=== PATIENT | male | born 1970 ===

== ENCOUNTER 2017-01-04 06:22 | Day surgery (SDC) | payer OTHER ==
[2016-06-30 01:17] VITALS: BMI 29.7
[2017-01-04 06:56] LABS: ADD MANUAL DIFF? NO
[2017-01-04 07:06] LABS: BASO # 0.13 K/mm3 (0.0-2.0); BASO % 1.5 % (0.0-3.0); EOS # 0.5 (0.0-0.7); EOS % 5.7 % (1.5-5.0); GRAN # 3.69 (1.4-6.5); GRAN % 43.1 % (50.0-68.0); HEMATOCRIT 42.1 % (42.0-52.0); LYMPH # 3.3 (1.2-3.4); LYMPH % 38.2 % (22.0-35.0); MEAN CELL VOLUME 82.1 fL (80.0-105.0); MEAN CORPUSCULAR HEMOGLOBIN 30.6 pg (25.0-35.0); MEAN CORPUSCULAR HGB CONC 37.3 g/dl (31.0-37.0); MEAN PLATELET VOLUME 10.3 fl (7.0-11.0); MONO % 11.5 % (1.0-6.0); PLATELET COUNT 182 10^3/uL (120.0-450.0); RED CELL DISTRIBUTION WIDTH 12.9 % (11.5-14.5); WHITE BLOOD COUNT 8.6 10^3/ul (4.5-11.0)
[2017-01-04 07:16] LABS: BLOOD UREA NITROGEN 14 mg/dL (7-21); CARBON DIOXIDE 25 mmol/L (21-33); CHLORIDE 108 mmol/L (95-110); GFR AFRICAN-AMERICAN > 60; GLUCOSE,RANDOM 94 mg/dL (70-110); POTASSIUM 3.9 mmol/L (3.6-5.0); SODIUM 140 mmol/L (132-148)
[2017-01-04 07:33] LABS: PARTIAL THROMBOPLASTIN TIME 27.4 Seconds (23.7-30.8)
[2017-01-04] MEDS ORDERED: Lidocaine 2% Inj (20ml) ONE (09:11)
[2017-01-04] MEDS ORDERED: Midazolam 2 MG/2 ML VIAL ONE ×2 (09:12→09:32)
[2017-01-04] MEDS ORDERED: Sodium Chloride 0.9% 1,000 ML IV SCH (10:00)
[2017-01-04 10:21] VITALS: RESP 20
--- NOTE | 2017-01-04 11:35 | CARDCATH ---
PROCEDURE DATE: 01/04/2017 HISTORY OF PRESENT ILLNESS: The patient is a 46-year-old male who presents with palpitations, chest pain. His cardiac risk factors are notable for borderline increased cholesterol. Because of an abnormal stress test, a cardiac catheterization was recommended. PROCEDURE: Left heart catheterization with coronary angiography and left ventriculogram. The right femoral artery was cannulated with a 6-Spanish sheath. There were no complications. The findings on catheterization revealed a left ventricle that contracted normally. Estimated ejecti on fraction is 60%. His coronary anatomy revealed a right dominant circulation. The RCA was free of significant disease. The left main artery was unremarkable. The LAD and diagonal vessels revealed mild intimal irregularities without critical lesions. The circumflex artery and obtuse marginal branches were free of significant disease. Angio-Seal was used to close the femoral artery site. The patient tolerated the procedure well. SUMMARY: The procedure revealed: 1. Unremarkable coronary arteries. 2. Normal left ventricular function. Given these findings, the patient's treatment should be a cardiac risk reduction program. We will co ntinue low-dose beta blockers. Dakota Galloway MD cc: [id number] TT: 01/04/2017 11:34:32 en
--- NOTE | 2017-01-04 12:41 | CARD ---
APPROVED REPORT EKG Measurement Heart [id number] CO 164P33 [id number] <Conclusion> Normal sinus rhythm Normal ECG
[2017-01-04 14:43] VITALS: PULSE 67
[2017-01-04 15:13] VITALS: BP 112/60; TEMP 98; O2SAT 96
== END 2017-01-04 15:15 | disposition home or self-care (01) ==
LOC: CATH 06:22
PROVIDERS: ATTEND Internal Medicine Cardiovascular Disease
DX: R07.9 Chest pain, unspecified (principal); R00.2 Palpitations; E78.00 Pure hypercholesterolemia, unspecified
CPT/HCPCS: 36415; 80048; 85025; 85610; 85730; 86850; 86900; 93005; 93458; 99152; C1760; C1769; C2629; J1644; J2250; J3010; J7040 ×2; Q9967

== ENCOUNTER 2018-09-29 06:13 | Outpatient (CLI) | payer OTHER | END 2018-09-29 06:14 | disposition home or self-care (01) | LOC: CARDIO 06:13 ==

== ENCOUNTER 2018-09-29 11:29 | Emergency (ER) | payer OTHER ==
[2018-09-29 11:31] VITALS: BMI 32.8
[2018-09-29 11:43] VITALS: RESP 18; TEMP 97.2
--- NOTE | 2018-09-29 12:01 | ED PDOC ---
Arrival/HPI - General Chief Complaint: Chest Pain Time Seen by Provider: 09/29/18 11:33 Historian: Patient - History of Present Illness Narrative History of Present Illness (Text): 09/29/18 11:58 A 48 year old male, whose past medical history includes tachycardia and hypertension, presents to the emergency department complaining of chest discomfort and tightness since earlier today. Patient reports he was at the doctor's office waiting to do a stress test when he suddenly experienced sharp chest pains prompting Dr. Galloway to send him to the ER. Patient notes pain is non- radiating and is claiming he feels better. Patient denies any shortness of breath, diaphoresis, or any other complaints. PMD: Dr. Holguin Time/Duration: 1-3 hours (earlier today) Symptom Onset: Sudden Symptom Course: Improving Activities at Onset: Light Context: Other (Doctor's office) Past Medical History - Provider Review Nursing Documentation Reviewed: Yes - Reproductive Currently Lactating: No - Cardiac Hx Cardiac Disorders: Yes Hx Cardiac Arrhythmia: Yes (tachycardia) Hx Pacemaker: No - Pulmonary Hx Respiratory Disorders: No - Neurological Hx Paralysis: No - HEENT Hx HEENT Disorder: No - Renal Hx Renal Disorder: No - Endocrine/Metabolic Hx Endocrine Disorders: No - Hematological/Oncological Hx Blood Transfusions: No - Integumentary Hx Dermatological Disorder: No - Musculoskeletal/Rheumatological Hx Musculoskeletal Disorders: No - Gastrointestinal Hx Gastrointestinal Disorders: No - Genitourinary/Gynecological Hx Genitourinary Disorders: No - Psychiatric Hx Emotional Abuse: No Hx Physical Abuse: No Hx Substance Use: No - Surgical History Other/Comment: cardioverted x2 - Anesthesia Hx Anesthesia Reactions: No Hx Malignant Hyperthermia: No - Suicidal Assessment Feels Threatened In Home Enviroment: No Family/Social History - Physician Review Nursing Documentation Reviewed: Yes Family/Social History: No Known Family HX Smoking Status: Former Smoker Hx Alcohol Use: No Hx Substance Use: No Hx Substance Use Treatment: No Allergies/Home Meds Allergies/Adverse Reactions: Allergies No Known Allergies Allergy (Verified 06/30/16 01:15) Home Medications: Home Meds Medication Instructions Recorded Confirmed Metoprolol Succinate XL [Toprol XL] 50 mg PO DAILY 06/30/16 09/29/18 Review of Systems - Physician Review All systems were reviewed & negative as marked: Yes - Review of Systems Respiratory: absent: SOB Cardiovascular: Chest Pain Endocrine: absent: Diaphoresis Physical Exam - Physical Exam Narrative Physical Exam (Text): 09/29/18 11:59 Gen: VS reviewed, alert, well developed, well nourished, nontoxic, mild distress. ENT: normal pharynx. Eye: EOMI, PERRL. Neck: no JVD, supple, no adenopathy. CV: regular rate, regular rhythm, no rubs, no murmur, no gallops, S1, S2, pulses equal and strong. Pulm: no distress, clear to auscultation, no wheeze, no rhonchi, breath sounds equal, no rales. Abd: soft, nontender, no guarding, no rebound, no rigidity, normal bowel sounds. Ext: no edema. Skin: good color, no rash, no cyanosis. Psych: responds appropriately to questions, normal affect. Neuro: oriented x 3, CN2-12 intact grossly, motor intact, sensation intact. Vital Signs Reviewed: Yes Vital Signs Temp Pulse Resp BP Pulse Ox 09/29/18 11:37 97.2 F L 54 L 18 113/74 96 Temperature: Hypothermic Blood Pressure: Normal Pulse: Bradycardic Respiratory Rate: Normal Appearance: Positive for: Well-Appearing, Non-Toxic Pain Distress: None Mental Status: Positive for: Alert and Oriented X 3 Medical Decision Making ED Course and Treatment: 09/29/18 12:00 Impression: 48 year old male presenting to the emergency room complaining of chest discomfort and tightness. Plan: -- EKG -- Labs -- Chest X-ray -- Reassess and disposition Prior Visits: Notes and results from previous visits were reviewed. Progress Notes: - RAD Interpretation Narrative RAD Interpretations (Text): 09/29/18 13:27 Procedure: Chest X-ray Dictator: Chris Fortune MD Impression: No active disease. Radiology Orders: 09/29/18 12:00 CHEST PORTABLE [RAD] Stat Care Administrative Tech: Radiologist - EKG Interpretation EKG Interpretation (Text): 09/29/18 12:00 11:45 sinus olena at 52 bpm, nml qrs, nml axis, no acute sttw abn Interpreted by ED Physician: Yes - Scribe Statement The provider has reviewed the documentation as recorded by the Scribjones Butterfield All medical record entries made by the Scribe were at my direction and personally dictated by me. I have reviewed the chart and agree that the record accurately reflects my personal performance of the history, physical exam, medical decision making, and the department course for this patient. I have also personally directed, reviewed, and agree with the discharge instructions and disposition. Disposition/Present on Arrival - Present on Arrival Any Indicators Present on Arrival: No History of DVT/PE: No History of Uncontrolled Diabetes: No Urinary Catheter: No History of Decub. Ulcer: No History Surgical Site Infection Following: None - Disposition Have Diagnosis and Disposition been Completed?: Yes Diagnosis: Chest pain Disposition Time: 16:02 Patient Problems: Current Active Problems Problem Status Onset Chest pain Acute Condition: STABLE Discharge Instructions (ExitCare): Chest Pain (ED) Additional Instructions: return for any new or worsening symptoms. follow up with your employment interviewer as soon as possible. Referrals: Remington Fitzgerald MD [Primary Care Provider] - Follow up with primary Forms: [employer] (M[place]itanian), WORK NOTE
[2018-09-29 12:33] LABS: BASO # 0.05 K/mm3 (0.0-2.0); BASO % 0.6 % (0.0-3.0); EOS # 0.3 (0.0-0.7); EOS % 3.3 % (1.5-5.0); LYMPH # 3.5 (1.2-3.4); LYMPH % 40.4 % (22.0-35.0); MEAN CELL VOLUME 83.9 fl (80.0-105.0); MEAN CORPUSCULAR HEMOGLOBIN 30.4 pg (25.0-35.0); MEAN CORPUSCULAR HGB CONC 36.2 g/dl (31.0-37.0); MEAN PLATELET VOLUME 9.7 fl (7.0-11.0); MONO # 0.8 (0.1-0.6); MONO % 8.6 % (1.0-6.0); RBC 5.27 10^6/uL (3.5-6.1); RED CELL DISTRIBUTION WIDTH 13.2 % (11.5-14.5); WHITE BLOOD COUNT 8.7 10^3/uL (4.5-11.0)
--- NOTE | 2018-09-29 12:38 | RAD ---
Date of service: 09/29/2018 HISTORY: chest pain COMPARISON: Comparison is made with 06/30/2016 FINDINGS: LUNGS: No evidence of new infiltrate or consolidation in the lungs. PLEURA: No significant pleural effusion identified, no pneumothorax apparent. CARDIOVASCULAR: No aortic atherosclerotic calcification present. Normal cardiac size. No pulmonary vascular congestion. OSSEOUS STRUCTURES: No significant abnormalities. VISUALIZED UPPER ABDOMEN: Normal. OTHER FINDINGS: None. IMPRESSION: No active disease.
[2018-09-29 12:40] LABS: ALB/GLOB RATIO 1.3 (1.1-1.8); ALBUMIN 4.4 g/dL (3.0-4.8); ALT/SGPT 29 U/L (7-56); AST/SGOT 37 U/L (17-59); BLOOD UREA NITROGEN 15 mg/dL (7-21); CALCIUM 9.3 mg/dL (8.4-10.5); GFR NON-AFRICAN AMERICAN > 60; HDL CHOLESTEROL 32 mg/dL (29-60)
[2018-09-29 12:41] LABS: INR 1.11; PROTHROMBIN TIME 12.5 SECONDS (9.4-12.5)
[2018-09-29 12:51] LABS: LDL CHOLESTEROL 75 mg/dL (0-129)
[2018-09-29 12:54] LABS: TROPONIN I < 0.01 ng/mL
--- NOTE | 2018-09-29 13:56 | CARD ---
APPROVED REPORT Date of service: 09/29/2018 EKG Measurement Heart [id number] [place] 154P3 [id number] <Conclusion> Sinus bradycardia Otherwise normal ECG
[2018-09-29 16:21] VITALS: BP 115/78; PULSE 58; O2SAT 98
== END 2018-09-29 16:21 | disposition home or self-care (01) ==
LOC: ED 11:29
DX: R07.89 Other chest pain (principal); Z87.891 Personal history of nicotine dependence; I10 Essential (primary) hypertension

== ENCOUNTER 2018-10-24 06:34 | Day surgery (SDC) | payer OTHER ==
[2018-10-20 11:03] VITALS: BMI 29.7
[2018-10-24 07:05] VITALS: RESP 18
[2018-10-24 07:16] LABS: BASO # 0.09 K/mm3 (0.0-2.0); EOS # 0.4 (0.0-0.7); EOS % 4.2 % (1.5-5.0); HEMOGLOBIN 15.9 g/dL (14.0-18.0); LYMPH # 3.3 (1.2-3.4); LYMPH % 37.1 % (22.0-35.0); MEAN CELL VOLUME 84.6 fl (80.0-105.0); MEAN CORPUSCULAR HEMOGLOBIN 30.5 pg (25.0-35.0); MEAN CORPUSCULAR HGB CONC 36.1 g/dl (31.0-37.0); MEAN PLATELET VOLUME 10.2 fl (7.0-11.0); RBC 5.21 10^6/uL (3.5-6.1); RED CELL DISTRIBUTION WIDTH 12.9 % (11.5-14.5); WHITE BLOOD COUNT 8.9 10^3/uL (4.5-11.0)
[2018-10-24 07:26] LABS: INR 1.05; PARTIAL THROMBOPLASTIN TIME 34.3 Seconds (26.9-38.3); PROTHROMBIN TIME 11.9 SECONDS (9.4-12.5)
[2018-10-24 07:28] LABS: BLOOD UREA NITROGEN 16 mg/dL (7-21); CALCIUM 9.3 mg/dL (8.4-10.5); GFR NON-AFRICAN AMERICAN > 60
[2018-10-24] MEDS ORDERED: Iodixanol 320 MG/ML 100 ML BOTTLE IV ONE (09:34)
[2018-10-24] MEDS ORDERED: Iohexol 350mgl/ml 50 ML ONE (09:34)
[2018-10-24] MEDS ORDERED: Lidocaine PF 2% (5 ml) Inj (For Cardiac Arrhy) ONE ×2 (09:34→09:37)
[2018-10-24] MEDS ORDERED: Iodixanol 320 MG/ML 200 ML BOTTLE IV ONE (09:34)
[2018-10-24] MEDS ORDERED: Midazolam 2 MG/2 ML VIAL ONE ×2 (10:15→10:17)
[2018-10-24] MEDS ORDERED: Sodium Chloride 0.9% 1,000 ML IV SCH (10:45)
[2018-10-24 11:02] VITALS: TEMP 98
[2018-10-24 14:05] VITALS: O2SAT 96
--- NOTE | 2018-10-24 14:52 | CARDCATH ---
PROCEDURE DATE: 10/24/2018 HISTORY The patient is a 48-year-old male with a history of hypertension as well as being overweight who presents with atypical chest pain. A stress test revealed new changes in the inferior wall. Because of this, cardiac catheterization was recommended. PROCEDURE: Left heart catheterization with coronary arteriography and left ventriculogram. The right femoral artery was cannulated with 6-Greek sheath. There were no complications. I performed moderate sedation which included the presence of an independent trained observer that assisted in monitoring the patient's level of consciousness and physiologic status. After administration of Versed and fentanyl, my intra service time was 15 minutes. The findings on catheterization revealed a left ventricle that contracted normally. Estimated ejection fraction of 60%. The patient's coronary artery revealed a right dominant circulation. The RCA revealed mild intimal irregularities without critical lesions. The left main artery was unremarkable. The LAD and diagonal vessels revealed mild intimal irregularities without critical lesions. The circumflex artery and obtuse marginal branches were free of significant disease. Angio-Seal was used to close the femoral artery site. The patient tolerated the procedure well. In summary, the procedure revealed mild intimal irregularities in the coronary tree. Normal LV function with an EF of 60%. Given these findings, the patient's stress test abnormality does not represent ischemic coronary disease. In addition, his chest pain is of noncardiac origin. Given these findings, the patient's treatment should be a cardiac risk reduction program which needs to include weight loss. Dkaota Galloway MD
[2018-10-24 15:53] VITALS: BP 108/61; PULSE 55
--- NOTE | 2018-10-24 17:22 | CARD ---
APPROVED REPORT Date of service: 10/24/2018 EKG Measurement Heart [id number] CT 164P19 [id number] <Conclusion> Sinus bradycardia Otherwise normal ECG
== END 2018-10-24 16:34 | disposition home or self-care (01) ==
LOC: CATH 06:34
PROVIDERS: ATTEND Internal Medicine Cardiovascular Disease
DX: R07.89 Other chest pain (principal); E78.00 Pure hypercholesterolemia, unspecified
CPT/HCPCS: 36415; 80048; 85025; 85610; 85730; 86850; 86900; 93005; 93458; 99152; C1760; C1769; C2629; J1644; J2250; J3010; J7030; Q9966